=== PATIENT | male | born 1950 | race Caucasian/White ===

== ENCOUNTER 2021-03-18 02:53 | Emergency (ER) | payer MEDICARE, OTHER ==
[2021-03-18] MEDS ORDERED: Sodium Chloride 0.9% 1,000 ML IV ONE (03:05)
[2021-03-18] MEDS ORDERED: Ondansetron 4 MG/2 ML SDV IVPUSH ONE (03:05)
[2021-03-18] MEDS ORDERED: HYDROmorphone 1 MG/ML Syringe IVPUSH ONE ×3 (03:05→06:56)
--- NOTE | 2021-03-18 03:16 | EDM.PDOC ---
ED HPI GENERAL MEDICAL PROBLEM - General Chief Complaint: General Stated Complaint: abd pain Time Seen by Provider: 03/18/21 03:16 Source of Information: Reports: Patient History Limitations: Reports: No Limitations - History of Present Illness INITIAL COMMENTS - FREE TEXT/NARRATIVE: Cristobal, 70-year-old male, presents emergency department accompanied by his with severe abdominal discomfort predominantly to the right upper and lower abdominal region. States this is been ongoing for 2 weeks, awakening him at roughly 10 PM last night presenting here at 3 AM with constant severe pain rating a 10 on a scale of 10. Nausea and vomiting have occurred. Bowel movement he states "a couple squirts" last night. Has not been going much secondary of poor intake for the entire 2 weeks. Unsure of having fever chills but more predominant pain. Vaccinated x2 with Mango[employer] in August against COVID-19. Is scheduled to see Dr. Stoddard as his knee was postponed last year secondary of pandemic and has not had any lab work for over a year. Overall good general health with no major concerns. Onset: Unknown/Unsure Duration: Week(s):, Getting Worse Location: Reports: Abdomen Quality: Reports: Pressure, Sharp Severity: Severe Improves with: Reports: None Worsens with: Reports: Movement Context: Reports: Activity Associated Symptoms: Reports: Fever/Chills Abdomen Pain Score (Numeric/FACES): 10 - Related Data Allergies Allergy/AdvReac Type Severity Reaction Status Date / Time No Known Allergies Allergy Verified 03/18/21 03:58 Home Meds: Home Meds Acetaminophen 500 mg PO Q6H PRN 03/18/21 [History] Multivitamin [Multiple Vitamins] 1 tab PO DAILY 03/18/21 [History] cephALEXin [Cephalexin] 2,000 mg PO ASDIRECTED PRN 03/18/21 [History] Past Medical History HEENT History: Reports: Impaired Vision Cardiovascular History: Reports: High Cholesterol Respiratory History: Reports: Sleep Apnea Gastrointestinal History: Reports: None Genitourinary History: Reports: None Musculoskeletal History: Reports: Arthritis Neurological History: Reports: None Psychiatric History: Reports: None Endocrine/Metabolic History: Reports: Diabetes, Type II - Past Surgical History GI Surgical History: Reports: Appendectomy Musculoskeletal Surgical History: Reports: Knee Replacement Social & Family History - Family History Family Medical History: No Pertinent Family History ED ROS GENERAL - Review of Systems Review Of Systems: Comprehensive ROS is negative, except as noted in HPI. ED EXAM, GENERAL - Physical Exam Exam: See Below Free Text/Narrative:: Alert, oriented, in painful distress. HEENT negative the discharge deformity with pink moist mucous membranes. Thorax is clear with no wheezes no crackles. Cardiac is S1-S2 I do not appreciate murmur. Abdomen is soft, tenderness noted is the right side of the abdomen both upper and lower quadrants and mild periumbilical pain. No rebound tenderness noted. No flank pain. Bowel sounds are present somewhat sluggish. Lower extremities have +12 edema. Abdominal pain has been steady slowly worsening since 2200 hrs. last night. He is unable to get comfortable on the cart. Course - Vital Signs Last Recorded V/S: Last Vital Signs Temp 96.3 F L 03/18/21 02:56 Pulse 91 03/18/21 02:56 Resp 20 03/18/21 02:56 BP 175/101 H 03/18/21 02:56 Pulse Ox 96 03/18/21 02:56 - Orders/Labs/Meds Orders: Active Orders 24 hr Category Date Time Status Peripheral IV Care [RC] . DIRECTED Care 03/18/21 03:20 Active Chest 1V Frontal [CR] Stat Exams 03/18/21 03:19 Taken Sodium Chloride 0.9% [Saline Flush] Med 03/18/21 03:19 Active 10 ml FLUSH Q8HR PRN Peripheral IV Insertion Adult [OM.PC] Stat Oth 03/18/21 03:19 Ordered Medication Orders Sodium Chloride (Sodium Chloride 0.9% 10 Ml Syringe) 10 ml FLUSH Q8HR PRN PRN Reason: keep vein open Last Admin: 03/18/21 06:02 Dose: 10 ml Documented by: Admin: 03/18/21 03:22 Dose: 10 ml Documented by: BRIANDA Labs: Laboratory Tests 03/18/21 03/18/21 03/18/21 Range/Units 03:50 03:50 03:50 WBC 8.14 (5.00-10.00) 10^3/uL RBC 5.85 (4.50-6.00) 10^6/uL Hgb 16.6 (13.0-17.0) g/dL Hct 49.6 (40.0-52.0) % MCV 84.8 (82.0-92.0) fL MCH 28.4 (27.0-31.0) pg MCHC 33.5 (32.0-36.0) g/dL RDW 13.0 (11.5-14.5) % Plt Count 140 L (150-400) 10^3/uL MPV 9.8 (7.4-10.4) fL Immature Gran % (Auto) 0.4 (0.0-5.0) % Neut % (Auto) 64.6 (50.0-70.0) % Lymph % (Auto) 25.7 (20.0-40.0) % [place] % (Auto) 9.0 H (2.0-8.0) % Eos % (Auto) 0.1 L (1.0-3.0) % Baso % (Auto) 0.2 (0.0-1.0) % Neut # (Auto) 5.26 (2.50-7.00) 10^3/uL Lymph # (Auto) 2.09 (1.00-4.00) 10^3/uL [place] # (Auto) 0.73 (0.10-0.80) 10^3/uL Eos # (Auto) 0.01 L (0.10-0.30) 10^3/uL Baso # (Auto) 0.02 (0.00-0.10) 10^3/uL Immature Gran # (Auto) 0.03 (0.00-0.50) 10^3/uL Sodium 134 L (136-145) mmol/L Potassium 4.1 (3.5-5.1) mmol/L Chloride 101 (98-107) mmol/L Carbon Dioxide 20.2 L (21.0-32.0) mmol/L Anion Gap 16.9 H (5-15) mmol/L BUN 22 H (7-18) mg/dL Creatinine 0.69 (0.51-1.17) mg/dL Est Cr Clr Drug Dosing TNP Estimated GFR (MDRD) > 60 mL/min Glucose 173 H (70-140) mg/dL Lactic Acid 1.6 (0.4-2.0) mmol/L Calcium 8.4 L (8.7-10.3) mg/dL Total Bilirubin 1.0 (0.2-1.0) mg/dL AST 42 H (15-37) U/L ALT 61 (14-63) U/L Alkaline Phosphatase 86 (46-116) U/L Troponin I High Sens < 4.000 (0-76.000) pg/mL Total Protein 7.2 (6.4-8.2) g/dL Albumin 3.08 L (3.40-5.00) g/dL Amylase 35 (25-125) U/L Lipase 102 (73-393) U/L Specimen Type Urine Color (YELLOW) Urine Appearance (CLEAR) Urine pH (5.0-9.0) Ur Specific [place] (1.005-1.030) Urine Protein (NEGATIVE) mg/dL Urine Glucose (UA) (NEGATIVE) mg/dL Urine Ketones (NEGATIVE) mg/dL Urine Occult Blood (NEGATIVE) Urine Nitrite (NEGATIVE) Urine Bilirubin (NEGATIVE) Urine Urobilinogen (0.2-1.0) E.U./dL Ur Leukocyte Esterase (NEGATIVE) Urine RBC (0-5) /HPF Urine WBC (0-5) /HPF Ur Epithelial Cells /LPF Urine Bacteria (NONE TO FEW) /HPF Urine Mucus (NEGATIVE) /LPF 03/18/21 Range/Units 04:00 WBC (5.00-10.00) 10^3/uL RBC (4.50-6.00) 10^6/uL Hgb (13.0-17.0) g/dL Hct (40.0-52.0) % MCV (82.0-92.0) fL MCH (27.0-31.0) pg MCHC (32.0-36.0) g/dL RDW (11.5-14.5) % Plt Count (150-400) 10^3/uL MPV (7.4-10.4) fL Immature Gran % (Auto) (0.0-5.0) % Neut % (Auto) (50.0-70.0) % Lymph % (Auto) (20.0-40.0) % [place] % (Auto) (2.0-8.0) % Eos % (Auto) (1.0-3.0) % Baso % (Auto) (0.0-1.0) % Neut # (Auto) (2.50-7.00) 10^3/uL Lymph # (Auto) (1.00-4.00) 10^3/uL [place] # (Auto) (0.10-0.80) 10^3/uL Eos # (Auto) (0.10-0.30) 10^3/uL Baso # (Auto) (0.00-0.10) 10^3/uL Immature Gran # (Auto) (0.00-0.50) 10^3/uL Sodium (136-145) mmol/L Potassium (3.5-5.1) mmol/L Chloride (98-107) mmol/L Carbon Dioxide (21.0-32.0) mmol/L Anion Gap (5-15) mmol/L BUN (7-18) mg/dL Creatinine (0.51-1.17) mg/dL Est Cr Clr Drug Dosing Estimated GFR (MDRD) mL/min Glucose (70-140) mg/dL Lactic Acid (0.4-2.0) mmol/L Calcium (8.7-10.3) mg/dL Total Bilirubin (0.2-1.0) mg/dL AST (15-37) U/L ALT (14-63) U/L Alkaline Phosphatase (46-116) U/L Troponin I High Sens (0-76.000) pg/mL Total Protein (6.4-8.2) g/dL Albumin (3.40-5.00) g/dL Amylase (25-125) U/L Lipase (73-393) U/L Specimen Type Urincc Urine Color [place] H (YELLOW) Urine Appearance Clear (CLEAR) Urine pH 5.0 (5.0-9.0) Ur Specific [place] >= 1.030 (1.005-1.030) Urine Protein 100 H (NEGATIVE) mg/dL Urine Glucose (UA) Negative (NEGATIVE) mg/dL Urine Ketones 80 H (NEGATIVE) mg/dL Urine Occult Blood Trace-lysed H (NEGATIVE) Urine Nitrite Negative (NEGATIVE) Urine Bilirubin Small H (NEGATIVE) Urine Urobilinogen 1.0 (0.2-1.0) E.U./dL Ur Leukocyte Esterase Negative (NEGATIVE) Urine RBC 0-5 (0-5) /HPF Urine WBC 0-5 (0-5) /HPF Ur Epithelial Cells Rare /LPF Urine Bacteria Occasional (NONE TO FEW) /HPF Urine Mucus Moderate H (NEGATIVE) /LPF Meds: Medications Generic Name Dose Route Start Last Admin Trade Name Preston PRN Reason Stop Dose Admin Sodium Chloride 10 ml 03/18/21 03:19 03/18/21 06:02 Sodium Chloride 0.9% 10 Ml Syringe FLUSH 10 ml Q8HR PRN Administration keep vein open Discontinued Medications Generic Name Dose Route Start Last Admin Trade Name Preston PRN Reason Stop Dose Admin Hydromorphone HCl 1 mg 03/18/21 03:05 03/18/21 03:29 Hydromorphone 1 Mg/Ml Syringe IVPUSH 03/18/21 03:06 1 mg ONETIME ONE Administration Hydromorphone HCl 1 mg 03/18/21 05:51 03/18/21 05:57 Hydromorphone 1 Mg/Ml Syringe IVPUSH 03/18/21 05:52 1 mg ONETIME ONE Administration Sodium Chloride 1,000 mls @ 999 mls/hr 03/18/21 03:05 03/18/21 03:43 Normal Saline IV 03/18/21 04:05 999 mls/hr .BOLUS ONE Administration Ketorolac Tromethamine 30 mg 03/18/21 04:13 03/18/21 04:16 Ketorolac 30 Mg/Ml Sdv IVPUSH 03/18/21 04:14 30 mg ONETIME ONE Administration Ondansetron HCl 8 mg 03/18/21 03:05 03/18/21 03:33 Ondansetron 4 Mg/2 Ml Sdv IVPUSH 03/18/21 03:06 8 mg ONETIME ONE Administration - Re-Assessments/Exams Free Text/Narrative Re-Assessment/Exam: 03/18/21 04:18 As his pain is returning "7" I reassess and discuss with him the aspects as we are still waiting for creatinine and GFR to do CT abdomen pelvis with contrast. He now feels pain is increased again as he was somewhat comfortable after the IV Dilaudid. I tell him that there is mild hematuria which makes me question kidney stone although he does not have flank pain. Explained that with his loose stool I am more concerned of bowel issues to which he now says the pain has not been that bad for the past 2 weeks and the reason he has not had bowel movements this because he is not eating. She is abdominal pain has been minimal and was more anterior epigastric for the past 2 weeks changing its pattern and its severity with now stating that tonight is the only time it had been severe, but yet awakening him with a sharp onset at 10 PM and not arriving to the emergency department until 3 AM. Departure - Departure Time of Disposition: 06:09 Disposition: DC/Tfer to [facility] 02 Condition: Fair Clinical Impression: Hyperglycemia, Mesenteric vein thrombosis, Portal vein thrombosis Abdominal pain Qualifiers: Abdominal location: generalized Qualified Code(s): R10.84 - Generalized abdominal pain - Discharge Information *PRESCRIPTION DRUG MONITORING PROGRAM REVIEWED*: Not Applicable *COPY OF PRESCRIPTION DRUG MONITORING REPORT IN PATIENT ANDERS: Not Applicable Referrals: Mary Jo Alves CRA OFFICER [Primary Care Provider] - Forms: ED Department Discharge Additional Instructions: Contact with [place] 1 call at [phone] Davila [phone] excepting transfer to the emergency department for further work-up. Sepsis Event Note (ED) - Focused Exam Vital Signs: Vital Signs Temp Pulse Resp BP Pulse Ox 03/18/21 02:56 96.3 F L 91 20 175/101 H 96 ED Communication - ED Communication Date/Time Date: 03/18/21 Time Called: 05:55 - Discussed Case With (1) Discussed Case With (1): Admitting Provider Person/s Notified (1): Dee Davila ([place] [facility]) - Problem List & Annotations (1) Abdominal pain SNOMED Code(s): 72776846 Code(s): R10.9 - UNSPECIFIED ABDOMINAL PAIN Status: Acute Priority: High Qualifiers: Abdominal location: generalized Qualified Code(s): R10.84 - Generalized abdominal pain (2) Change in consistency of stool SNOMED Code(s): 909498610 Code(s): R19.5 - OTHER FECAL ABNORMALITIES Status: Acute Priority: High (3) Hyperglycemia SNOMED Code(s): 57429124 Code(s): R73.9 - HYPERGLYCEMIA, UNSPECIFIED Status: Acute Priority: High Annotation/Comment:: History of "Pre-diabetes" Likely type 2 with this elevation. (4) Hematuria SNOMED Code(s): 38528965 Code(s): R31.9 - HEMATURIA, UNSPECIFIED Status: Acute Priority: Medium Qualifiers: Hematuria type: unspecified type Qualified Code(s): R31.9 - Hematuria, unspecified (5) Mesenteric vein thrombosis Status: Acute (6) Portal vein thrombosis SNOMED Code(s): 33982041 Code(s): I81 - PORTAL VEIN THROMBOSIS Status: Acute - Problem List Review Problem List Initiated/Reviewed/Updated: Yes - My Orders Last 24 Hours: My Active Orders 03/18/21 03:19 Chest 1V Frontal [CR] Stat Sodium Chloride 0.9% [Saline Flush] 10 ml FLUSH Q8HR PRN Peripheral IV Insertion Adult [OM.PC] Stat 03/18/21 03:20 Peripheral IV Care [RC] . DIRECTED - Assessment/Plan Last 24 Hours: My Active Orders 03/18/21 03:19 Chest 1V Frontal [CR] Stat Sodium Chloride 0.9% [Saline Flush] 10 ml FLUSH Q8HR PRN Peripheral IV Insertion Adult [OM.PC] Stat 03/18/21 03:20 Peripheral IV Care [RC] . DIRECTED Plan: Contact with [place] 1 call at [phone] Davila [phone] excepting transfer to the emergency department for further work-up.
[2021-03-18] MEDS: Sodium Chloride 0.9% 10 ML Syringe FLUSH PRN ×2 (03:22→06:02)
[2021-03-18] MEDS ORDERED: Ketorolac 30 MG/ML SDV IVPUSH ONE (04:13)
[2021-03-18 04:19] LABS: ANION GAP 16.9 mmol/L (5-15); CHLORIDE,CL 101 mmol/L (98-107); SODIUM,NA 134 mmol/L (136-145)
[2021-03-18] MEDS: Iopamidol 755 Mg/ML 75 ML Bottle IVPUSH ONE ×2 (04:31→23:00)
[2021-03-18] MEDS ORDERED: HYDROmorphone 1 MG/ML Syringe ONE (06:54)
--- NOTE | 2021-03-18 08:55 | CR ---
[id number] RAD/RAD Chest Portable EXAM: PORTABLE CHEST RADIOGRAPH. INDICATION: ABDOMINAL PAIN COMPARISON: CORRELATION IS MADE WITH NOVEMBER 03, 2011 FINDINGS: Elevation of the right hemidiaphragm again is seen The lungs are clear The cardiac silhouette is stable IMPRESSION: NO ACUTE PROCESS. Vitaliy Guillory MD 03/18/21 08 Thank you for allowing us to participate in the care of your patient.
[2021-03-19] MEDS ORDERED: Sodium Chloride 0.9% 50 ML IV SCH (10:30)
[2021-03-19] MEDS: Iopamidol 755 Mg/ML 75 ML Bottle IVPUSH ONE (10:31)
== END 2021-03-18 07:03 ==
LOC: KA.ED 02:53
DX: K55.059 Acute (reversible) ischemia of intestine, part and extent unspecified (principal); I81 Portal vein thrombosis; E11.65 Type 2 diabetes mellitus with hyperglycemia
CPT/HCPCS: 36415; 71045; 80053; 81001; 82150; 83605; 83690; 84484; 85025; 96374; 96375; 96376; 99284; 99285-25; J1170; J1885; J2405; J7030; Q9967

== ENCOUNTER 2021-04-03 03:53 | Inpatient (IN) | payer MEDICARE, OTHER ==
[2021-04-03] MEDS ORDERED: Acetaminophen 500 MG Tab PO PRN (17:30)
[2021-04-03] MEDS ORDERED: Melatonin 3 MG Tab PO PRN (17:36)
[2021-04-03] MEDS ORDERED: Ondansetron 4 MG Tab.DIS PO PRN (17:36)
[2021-04-03] MEDS ORDERED: Piperacillin/Tazobactam/Dext 3.375 GM in Premix Bag 1 BAG IV SCH (20:00)
[2021-04-03] MEDS: Apixaban 5 MG Tab PO SCH (21:22)
[2021-04-03] MEDS: Sodium Chloride 1 GM Tab PO SCH (21:22)
[2021-04-03] MEDS: Sodium Chloride 0.9% 10 ML Syringe FLUSH PRN ×2 (21:30→22:24)
[2021-04-03] MEDS: Sodium Chloride 0.9% 100 ML IV SCH (21:30)
[2021-04-03] MEDS: Piperacillin/Tazobactam 4.5 GM in Sodium Chloride 0.9% 100 ML IV SCH (21:30)
[2021-04-03] MEDS ORDERED: Piperacillin/Tazobactam 4.5 GM Vial IV SCH (22:00)
[2021-04-04] MEDS: Sodium Chloride 0.9% 10 ML Syringe FLUSH PRN ×2 (05:14→06:08)
[2021-04-04] MEDS: Piperacillin/Tazobactam 4.5 GM in Sodium Chloride 0.9% 100 ML IV SCH ×3 (05:14→21:32)
[2021-04-04 07:46] LABS: ANION GAP 11.7 mmol/L (5-15); CHLORIDE,CL 106 mmol/L (98-107); SODIUM,NA 137 mmol/L (136-145)
[2021-04-04] MEDS: Apixaban 5 MG Tab PO SCH ×2 (08:51→21:32)
[2021-04-04] MEDS: Metoprolol Succinate 25 MG Tab.ER PO SCH (08:51)
[2021-04-04] MEDS: Sodium Chloride 1 GM Tab PO SCH ×3 (08:51→21:32)
--- NOTE | 2021-04-04 09:24 | PCM.HP.2 ---
H&P History of Present Illness - General Date of Service: 04/04/21 Admit Problem/Dx: Admission Diagnosis/Problem Admission Diagnosis/Problem Status post small bowel resection - Related Data Allergies/Adverse Reactions: Allergies Allergy/AdvReac Type Severity Reaction Status Date / Time No Known Allergies Allergy Verified 03/18/21 03:58 Home Medications: Home Meds Acetaminophen 1,000 mg PO Q6H PRN 03/18/21 [History] Apixaban [Eliquis] 5 mg PO BID 04/03/21 [History] Apixaban [Eliquis] 10 mg PO BID 04/03/21 [History] Benzocaine/Menthol [[facility] Sore Throat 15-3.6 mg Arturo] 1 each MM Q4HR PRN 04/03/21 [History] Melatonin 3 mg PO BEDTIME PRN 04/03/21 [History] Metoprolol Succinate [Toprol Xl] 25 mg PO DAILY 04/03/21 [History] Ondansetron [Zofran ODT] 4 mg PO Q4HR PRN 04/03/21 [History] Patient's Own Medication [Ptom] 1 tab PO DAILY 04/03/21 [History] Piperacillin/Tazobactam [Zosyn 4.5 GM] 4.5 gm IV Q8HR 04/03/21 [History] Sodium Chloride 1 gm PO TID 04/03/21 [History] Sodium Chloride 0.9 % (Flush) [Monoject 0.9% Sodium Chloride] 1 syringe DAILY 04/03/21 [History] cephALEXin [Cephalexin] 2,000 mg PO ASDIRECTED PRN 04/03/21 [History] Past Medical History HEENT History: Reports: Hard of Hearing, Impaired Vision Other HEENT History: wears bilateral hearing aids and glasses Cardiovascular History: Reports: High Cholesterol, Hypertension Respiratory History: Reports: Sleep Apnea Gastrointestinal History: Reports: Other (See Below) Other Gastrointestinal History: ischemic colitis Genitourinary History: Reports: None Musculoskeletal History: Reports: Arthritis Neurological History: Reports: None Psychiatric History: Reports: None Endocrine/Metabolic History: Reports: Obesity/BMI 30+, Vitamin D Deficiency Other Endocrine/Metabolic History: Pre-diabetic - Past Surgical History Head Surgeries/Procedures: Reports: None GI Surgical History: Reports: Appendectomy, Small Bowel, Other (See Below) Other GI Surgeries/Procedures: small bowel resection 42 cm necrotic bowel removed 03/22/21 & 03/24/21 Musculoskeletal Surgical History: Reports: Knee Replacement Social & Family History - Family History Family Medical History: No Pertinent Family History - Tobacco Use Tobacco Use Status *Q: Never Tobacco User Second Hand Smoke Exposure: Yes - Caffeine Use Caffeine Use: Reports: Coffee, Soda - Recreational Drug Use Recreational Drug Use: No H&P Review of Systems - Review of Systems: Review Of Systems: See Below General: Reports: Weakness, Fatigue, Decreased Appetite. Denies: Fever, Chills HEENT: Reports: No Symptoms. Denies: Headaches, Sinus Congestion Pulmonary: Reports: Wheezing. Denies: Shortness of Breath, Pleuritic Chest Pain, Cough (intermittent, mild) Cardiovascular: Reports: No Symptoms. Denies: Edema Gastrointestinal: Reports: Decreased Appetite, Flatus. Denies: Abdominal Pain, Constipation, Diarrhea, Nausea Genitourinary: Reports: No Symptoms Musculoskeletal: Reports: No Symptoms Skin: Reports: Other (Healing incision of abdomen ) Psychiatric: Reports: No Symptoms Neurological: Reports: No Symptoms Hematologic/Lymphatic: Reports: No Symptoms Immunologic: Reports: No Symptoms Exam - Exam Exam: See Below - Vital Signs Vital Signs: Last Vital Signs Temp 97.3 F 04/03/21 21:21 Pulse 56 L 04/04/21 08:51 Resp 20 04/03/21 21:21 BP 126/80 04/04/21 08:51 Pulse Ox 92 L 04/03/21 21:21 Weight: 265 lb 14.4 oz - Exam Quality Assessment: DVT Prophylaxis. No: Supplemental Oxygen, Urinary Catheter General: Alert, Oriented, Cooperative. No: Mild Distress HEENT: Conjunctiva Clear, Mucosa Moist & [place] Neck: Supple, Trachea Midline Lungs: Normal Respiratory Effort, Decreased Breath Sounds, Wheezing. No: Crackles, Rhonchi Cardiovascular: Regular Rate, Irregular Rhythm (slightly irregular on auscultation). No: Systolic Murmur GI/Abdominal Exam: Normal Bowel Sounds, Soft, Non-Tender, No Distention. No: Guarding (Male) Exam: Deferred Rectal (Males) Exam: Deferred Back Exam: Normal Inspection, Full Range of Motion Extremities: Normal Inspection, Normal Range of Motion, Non-Tender, No Pedal Edema, Normal Capillary Refill Peripheral Pulses: 2+: Dorsalis Pedis (L), Dorsalis Pedis (R) Skin: Warm, Dry, Incision (healing midline abdominal incision with intact juan francisco noted; GIOVANNY drain with straw colored fluid) Neurological: Cranial Nerves Intact Neuro Extensive - Mental Status: Alert, Oriented x3, Normal Mood/Affect Psychiatric: Alert, Normal Affect, Normal Mood - Patient Data Lab Results Last 24 hrs: Laboratory Results - last 24 hr 04/04/21 04/04/21 Range/Units 07:11 07:11 WBC 11.13 H (5.00-10.00) 10^3/uL RBC 4.07 L (4.50-6.00) 10^6/uL Hgb 11.5 L D (13.0-17.0) g/dL Hct 35.0 L (40.0-52.0) % MCV 86.0 (82.0-92.0) fL MCH 28.3 (27.0-31.0) pg MCHC 32.9 (32.0-36.0) g/dL RDW 14.5 (11.5-14.5) % Plt Count 207 (150-400) 10^3/uL MPV 10.1 (7.4-10.4) fL Immature Gran % (Auto) 1.1 (0.0-5.0) % Neut % (Auto) 49.4 L (50.0-70.0) % Lymph % (Auto) 42.0 H (20.0-40.0) % [place] % (Auto) 6.6 (2.0-8.0) % Eos % (Auto) 0.7 L (1.0-3.0) % Baso % (Auto) 0.2 (0.0-1.0) % Neut # (Auto) 5.49 (2.50-7.00) 10^3/uL Lymph # (Auto) 4.68 H (1.00-4.00) 10^3/uL [place] # (Auto) 0.74 (0.10-0.80) 10^3/uL Eos # (Auto) 0.08 L (0.10-0.30) 10^3/uL Baso # (Auto) 0.02 (0.00-0.10) 10^3/uL Immature Gran # (Auto) 0.12 (0.00-0.50) 10^3/uL Sodium 137 (136-145) mmol/L Potassium 4.1 (3.5-5.1) mmol/L Chloride 106 (98-107) mmol/L Carbon Dioxide 23.4 (21.0-32.0) mmol/L Anion Gap 11.7 (5-15) mmol/L BUN 16 (7-18) mg/dL Creatinine 0.71 (0.51-1.17) mg/dL Est Cr Clr Drug Dosing 106.06 mL/min Estimated GFR (MDRD) > 60 mL/min Glucose 92 (70-140) mg/dL Calcium 7.2 L (8.7-10.3) mg/dL Result Diagrams: 04/04/21 07:11 04/04/21 07:11 Sepsis Event Note - Evaluation Sepsis Screening Result: No Definite Risk - Focused Exam Vital Signs: Vital Signs Pulse BP 04/04/21 08:51 56 L 126/80 Problem List Initiated/Reviewed/Updated: Yes Orders Last 24hrs: Active Orders 24 hr Category Date Time Status Admission Status [Patient Status] [ADT] Routine ADT 04/03/21 15:29 Active Activity as Tolerated [RC] .Routine Care 04/03/21 16:39 Active Communication Order [RC] Care 04/03/21 16:40 Active Communication Order [RC] DAILY Care 04/03/21 16:41 Active Communication Order [RC] DAILY Care 04/03/21 16:42 Active Communication Order [RC] DAILY Care 04/03/21 16:43 Active Communication Order [RC] DAILY Care 04/03/21 16:43 Active Consult to Occupational Therapy [OT Evaluation and Cons 04/03/21 16:39 Active Treatment] [CONS] Routine PT Evaluation and Treatment [CONS] Routine Cons 04/03/21 16:38 Active Acetaminophen [Tylenol Extra Strength] Med 04/03/21 17:30 Active 1,000 mg PO Q6H PRN Apixaban [Eliquis] Med 04/03/21 21:00 Active 10 mg PO BID Apixaban [Eliquis] Med 04/08/21 09:00 Active 5 mg PO BID Melatonin Med 04/03/21 17:36 Active 3 mg PO BEDTIME PRN Metoprolol Succinate [Toprol XL] Med 04/04/21 09:00 Active 25 mg PO DAILY Ondansetron [Zofran ODT] Med 04/03/21 17:36 Active 4 mg PO Q4HR PRN Piperacillin/Tazobactam [Zosyn] 4.5 gm Med 04/03/21 22:00 Active Sodium Chloride 0.9% [Normal Saline] 100 ml IV Q8HR Sodium Chloride Med 04/03/21 21:00 Active 1 gm PO TID Sodium Chloride 0.9% [Normal Saline] 100 ml Med 04/03/21 18:45 Active IV ASDIRECTED Sodium Chloride 0.9% [Saline Flush] Med 04/03/21 21:37 Active 10 ml FLUSH ASDIRECTED PRN Code Status [Resuscitation Status] Routine Resus Stat 04/03/21 19:46 Ordered Medication Orders Acetaminophen (Acetaminophen 500 Mg Tab) 1,000 mg PO Q6H PRN PRN Reason: Pain Apixaban (Apixaban 5 Mg Tab) 10 mg PO BID [facility] Stop: 04/07/21 21:01 Last Admin: 04/04/21 08:51 Dose: 10 mg Documented by: Admin: 04/03/21 21:22 Dose: 10 mg Documented by: PONCHO Apixaban (Apixaban 5 Mg Tab) 5 mg PO BID [facility] Sodium Chloride (Normal Saline) 100 mls @ 250 mls/hr IV ASDIRECTED [facility] Last Admin: 04/03/21 21:30 Dose: 250 mls/hr Documented by: PONCHO Piperacillin Sod/Tazobactam (Sod 4.5 gm/ Sodium Chloride) 100 mls @ 200 mls/hr IV Q8HR [facility] Stop: 04/13/21 22:01 Last Admin: 04/04/21 05:14 Dose: 200 mls/hr Documented by: Admin: 04/03/21 21:30 Dose: 200 mls/hr Documented by: PONCHO Melatonin (Melatonin 3 Mg Tab) 3 mg PO BEDTIME PRN PRN Reason: Insomnia Metoprolol Succinate (Metoprolol Succinate 25 Mg Tab.Er) 25 mg PO DAILY [facility] Last Admin: 04/04/21 08:51 Dose: 25 mg Documented by: PALMER Ondansetron HCl (Ondansetron 4 Mg Tab.Dis) 4 mg PO Q4HR PRN PRN Reason: Nausea Sodium Chloride (Sodium Chloride 1 Gm Tab) 1 gm PO TID [facility] Last Admin: 04/04/21 08:51 Dose: 1 gm Documented by: Admin: 04/03/21 21:22 Dose: 1 gm Documented by: PONCHO Sodium Chloride (Sodium Chloride 0.9% 10 Ml Syringe) 10 ml FLUSH ASDIRECTED PRN PRN Reason: IV Use Last Admin: 04/04/21 06:08 Dose: 10 ml Documented by: Admin: 04/04/21 05:14 Dose: 10 ml Documented by: Admin: 04/03/21 22:24 Dose: 10 ml Documented by: Admin: 04/03/21 21:30 Dose: 10 ml Documented by: PONCHO Assessment/Plan Comment:: HPI summary: Cristobal is a 70-year-old male patient admitted from [facility] in [place] for swing bed after a rather complex acute hospital course. 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 Was being monitored and apparently had some improvement and then worsened and eventually required surgery with 45 cm of bowel removed. He subsequently required a few additional surgeries. He was then found to have some abscesses likely due to infection from bacterial translocation from the necrotic bowel. He had a GIOVANNY drain was placed by IR and patient has been receiving IV Zosyn to be continued on swing bed through 04/13. During his acute hospital stay, he was found to have decreased EF of 35% after the initial echo showed 60% on admission. Cardiac PET scan was essentially negative. Was seen by cardiology and they felt that this was likely due to nonischemic cardiomyopathy from the stress of this illness, etc. They wanted him on goal-directed therapy and follow-up in the clinic. Patient transferred to [facility] for inpatient rehab with nursing, PT and OT services. 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 On salt tablets during acute hospitalization. Swing bed Hospital Course: 04/04/21: Patient reports feeling somewhat weak following acute hospital stay. He has had a decreased appetite; denies N/V/D, BM this morning, + flatus. Denies fever, chills, headache, sore throat. Reports an occasional wheeze, has been using IS. Incision healing well to abdomen, juan francisco intact. GIOVANNY drain with straw colored fluid. Vitals stable. 97.3, HR 79, BP 116/60, RR 20, 92% on room air. Labs overall unremarkable: WBC 11.13, Hgb 11.5, Plt 207; Na 137, K 4.1, BUN 16, Creatinine 0.71, GFR > 60. PT and OT services ordered while on swing bed for rehabilitation. 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 - Continue eliquis at 10mg PO BID, then decrease to 5mg PO BID - Recommend hematology follow-up due to uncommon presentation # Recent hx of intra-abdominal abscesses; bowel resection for ischemic bowel - Continue GIOVANNY drain - Continue IV Zosyn Q8H through 04/13 Chronic, stable conditions: # Mixed hyperlipidemia # Prediabetes # Vitamin D deficiency # Fatigue # Snoring # Hearing impairment # R DJD # Obesity Hospitalization details: # FEN: Oral fluids with ensure supplementation, electrolytes stable, ADA diet # PPX: Continue eliquis # Code status: FULL CODE # Emergency contact: Laura [phone] # Disposition: Patient admitted to swing bed for [facility], PT and OT services for inpatient rehabilitation following rather complex acute hospital course.
[2021-04-04] MEDS ORDERED: Polyethylene Glycol 3350 Powder 17 GM Packet PO PRN (09:31)
[2021-04-04] MEDS: Sodium Chloride 0.9% 100 ML IV SCH (21:30)
[2021-04-05] MEDS: Piperacillin/Tazobactam 4.5 GM in Sodium Chloride 0.9% 100 ML IV SCH ×3 (05:53→21:26)
--- NOTE | 2021-04-05 08:17 | PT ---
PATIENT NAME: NARDA GRIFFIN MEDICAL RECORD NUMBER: : [id number] DATE: 04/04/2021 REFERRING PHYSICIAN: Sweta Daniel NP ONSET DATE: 03/24/2021. DIAGNOSIS: Deconditioning, bilateral lower extremity weakness, status post bowel obstruction with resection. SUBJECTIVE: The patient was taken by ambulance from our Emergency Department to [place] for a small-bowel obstruction. It was determined that the patient's shortness of breath was caused from this bowel obstruction, which ended up initially being a blood clot. The patient required 2 procedures to remove a portion of his small bowels with the most recent procedure being on 03/29/2021. The patient has had very little activity since the time of admission. He is able to transfer out of his bed to his chair with the assistance of nursing. He has also had regular bowel movements and is able to get to and from his bed to the bathroom with the assistance of nursing and a front wheel walker. The patient denies pain at this time. Despite the patient being very fatigued and weak, he tells me he is motivated to improve to prior level of function in terms of strength and activity. The patient was a very active individual before this admission. OBJECTIVE: Treatment time 1315, ending at 1400. TREATMENT: Consisted of physical therapy initial evaluation, low complex, and therapeutic exercises consisting of the patient ambulating inside a front- wheeled walker with contact guard assist x300 feet, which took 11 minutes. OBSERVATION: The patient is supine in bed upon my arrival. He had recently awoken from a nap. The patient's incision site through the abdominal wall appears to be healing normally and free of infection with juan francisco still intact. PAIN: The patient denies pain. PALPATION: Negative. RANGE OF MOTION: Active range of motion is within normal limits in all extremities bilaterally. Passive range of motion is grossly normal. Manual muscle test is grade 4/5 in all planes of bilateral upper and lower extremities. SPECIAL TESTS: Tinetti balance assessment score of 28/28. NEUROLOGIC FINDINGS: Grossly normal. ASSESSMENT: Impression: The patient will benefit from increasing the patient's activity level to improve strengthening conditioning in an effort to get him back to prior level of function, so he can return home. The patient does have two steps to accommodate to get in and out of the home with all his other needs being on one level. The patient shows a lot of motivation to improve. GOALS: Please refer to plan of care. PLAN: The patient will be seen in swing bed status 5 days per week for implementation and progression of therapeutic exercises to improve physical condition to prior level of function with normal strength and conditioning.
[2021-04-05] MEDS: Metoprolol Succinate 25 MG Tab.ER PO SCH (08:22)
[2021-04-05] MEDS: Sodium Chloride 1 GM Tab PO SCH ×3 (08:23→21:26)
[2021-04-05] MEDS: Apixaban 5 MG Tab PO SCH ×2 (08:23→21:26)
[2021-04-05] MEDS: Sodium Chloride 0.9% 100 ML IV SCH ×2 (14:28→21:41)
[2021-04-05] MEDS: Sodium Chloride 0.9% 10 ML Syringe FLUSH PRN (14:29)
[2021-04-06] MEDS: Piperacillin/Tazobactam 4.5 GM in Sodium Chloride 0.9% 100 ML IV SCH ×3 (05:33→17:50)
[2021-04-06] MEDS: Sodium Chloride 1 GM Tab PO SCH ×3 (08:33→20:25)
[2021-04-06] MEDS: Apixaban 5 MG Tab PO SCH ×2 (08:33→20:25)
[2021-04-06] MEDS: Metoprolol Succinate 25 MG Tab.ER PO SCH (08:44)
[2021-04-07] MEDS: Piperacillin/Tazobactam 4.5 GM in Sodium Chloride 0.9% 100 ML IV SCH ×3 (00:14→16:08)
[2021-04-07] MEDS: Apixaban 5 MG Tab PO SCH ×2 (08:32→20:06)
[2021-04-07] MEDS: Sodium Chloride 1 GM Tab PO SCH ×3 (08:32→20:05)
[2021-04-07] MEDS: Metoprolol Succinate 25 MG Tab.ER PO SCH (08:32)
[2021-04-07] MEDS: Sodium Chloride 0.9% 100 ML IV SCH (16:08)
[2021-04-08] MEDS: Piperacillin/Tazobactam 4.5 GM in Sodium Chloride 0.9% 100 ML IV SCH ×3 (00:13→16:15)
[2021-04-08] MEDS: Metoprolol Succinate 25 MG Tab.ER PO SCH (08:47)
[2021-04-08] MEDS: Sodium Chloride 1 GM Tab PO SCH ×3 (08:48→20:16)
[2021-04-08] MEDS: Apixaban 5 MG Tab PO SCH ×2 (08:48→20:16)
--- NOTE | 2021-04-08 12:38 | PCM.PN ---
- General Info Date of Service: 04/08/21 Functional Status: Reports: Pain Controlled, Tolerating Diet, Ambulating, Urinating, Incentive Spirometry (1500ml). Denies: New Symptoms - Review of Systems General: Reports: Weakness (improving with PT) HEENT: Reports: No Symptoms Pulmonary: Reports: Cough (occasional). Denies: Shortness of Breath, Wheezing Cardiovascular: Reports: Edema Gastrointestinal: Reports: Decreased Appetite, Flatus. Denies: Abdominal Pain, Constipation, Diarrhea, Nausea, Vomiting Genitourinary: Reports: No Symptoms Musculoskeletal: Reports: No Symptoms Skin: Reports: No Symptoms Neurological: Reports: No Symptoms Psychiatric: Reports: No Symptoms - Patient Data Vitals - Most Recent: Last Vital Signs Temp 97.5 F 04/08/21 08:46 Pulse 109 H 04/08/21 08:47 Resp 20 04/08/21 08:46 BP 117/79 04/08/21 08:47 Pulse Ox 94 L 04/08/21 08:46 Weight - Most Recent: 252 lb I&O - Last 24 Hours: Intake & Output 04/07/21 04/08/21 04/08/21 22:59 06:59 14:59 Intake Total 300 170 Output Total 200 1100 Balance 100 -930 Med Orders - Current: Current Medications Acetaminophen (Acetaminophen 500 Mg Tab) 1,000 mg PO Q6H PRN PRN Reason: Pain Apixaban (Apixaban 5 Mg Tab) 5 mg PO BID [facility] Last Admin: 04/08/21 08:48 Dose: 5 mg Documented by: Sodium Chloride (Normal Saline) 100 mls @ 250 mls/hr IV ASDIRECTED [facility] Last Admin: 04/07/21 16:08 Dose: 250 mls/hr Documented by: Piperacillin Sod/Tazobactam (Sod 4.5 gm/ Sodium Chloride) 100 mls @ 200 mls/hr IV Q8H [facility] Last Admin: 04/08/21 08:44 Dose: 200 mls/hr Documented by: Melatonin (Melatonin 3 Mg Tab) 3 mg PO BEDTIME PRN PRN Reason: Insomnia Metoprolol Succinate (Metoprolol Succinate 25 Mg Tab.Er) 25 mg PO DAILY [facility] Last Admin: 04/08/21 08:47 Dose: 25 mg Documented by: Ondansetron HCl (Ondansetron 4 Mg Tab.Dis) 4 mg PO Q4HR PRN PRN Reason: Nausea Polyethylene Glycol (Polyethylene Glycol 3350 Powder 17 Gm Packet) 17 gm PO DAILY PRN PRN Reason: Constipation Senna/Docusate Sodium (Docusate Sodium/Sennosides 50-8.6 Mg Tab) 1 tab PO BID PRN PRN Reason: Constipation Sodium Chloride (Sodium Chloride 1 Gm Tab) 1 gm PO TID [facility] Last Admin: 04/08/21 08:48 Dose: 1 gm Documented by: Sodium Chloride (Sodium Chloride 0.9% 10 Ml Syringe) 10 ml FLUSH ASDIRECTED PRN PRN Reason: IV Use Last Admin: 04/05/21 14:29 Dose: 10 ml Documented by: Discontinued Medications Apixaban (Apixaban 5 Mg Tab) 10 mg PO BID [facility] Stop: 04/07/21 21:01 Last Admin: 04/07/21 20:06 Dose: 10 mg Documented by: Piperacillin/Tazobactam/ (Dextrose 3.375 gm/ Premix) 50 mls @ 100 mls/hr IV Q6H [facility] Stop: 04/13/21 20:01 Piperacillin Sod/Tazobactam (Sod 4.5 gm/ Sodium Chloride) 100 mls @ 200 mls/hr IV Q8HR [facility] Stop: 04/13/21 22:01 Last Admin: 04/06/21 17:50 Dose: Not Given Documented by: Piperacillin Sod/Tazobactam Sod (Piperacillin/Tazobactam 4.5 Gm Vial) 4.5 gm IV Q8HR JENN - Exam Quality Assessment: DVT Prophylaxis. No: Supplemental Oxygen, Urine Catheter General: Alert, Oriented, Cooperative, No Acute Distress HEENT: Pupils Equal, Pupils Reactive, Mucous Membr. Moist/[place] Neck: Supple, Trachea Midline Lungs: Clear to Auscultation, Normal Respiratory Effort. No: Crackles, Rhonchi, Wheezing Cardiovascular: Regular Rhythm, Tachycardia. No: No Murmurs GI/Abdominal Exam: Normal Bowel Sounds, Soft, Non-Tender, No Distention (Male) Exam: Deferred Extremities: Normal Inspection, Normal Range of Motion, Non-Tender, Normal Capillary Refill, Pedal Edema (+1 BLE) Peripheral Pulses: 2+: Dorsalis Pedis (L), Dorsalis Pedis (R) Skin: Warm, Dry, Intact Wound/Incisions: Healing Well, Other (will remove every other staple today; 14 days post-op today - will plan to remove the remaining juan francisco next 1-2 days) Neurological: No New Focal Deficit Psy/Mental Status: Alert, Normal Affect, Normal Mood - Patient Data Result Diagrams: 04/04/21 07:11 04/04/21 07:11 Sepsis Event Note - Evaluation Sepsis Screening Result: No Definite Risk - Focused Exam Vital Signs: Vital Signs Temp Pulse Pulse Resp BP BP Pulse Ox 04/08/21 08:47 109 H 117/79 04/08/21 08:46 97.5 F 109 H 20 117/79 94 L - Problem List Review Problem List Initiated/Reviewed/Updated: Yes - My Orders Last 24 Hours: My Active Orders 04/09/21 05:11 CBC WITH AUTO DIFF [HEME] AM CMP [COMPREHENSIVE METABOLIC PN,CMP] [CHEM] AM 04/17/21 09:00 Abdomen Pelvis w Cont [CT] Routine - Plan Plan:: HPI summary: Cristobal is a 70-year-old male patient admitted from [facility] in [place] for swing bed after a rather complex acute hospital course. 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 Was being monitored and apparently had some improvement and then worsened and eventually required surgery with 45 cm of bowel removed. He subsequently required a few additional surgeries. He was then found to have some abscesses likely due to infection from bacterial translocation from the necrotic bowel. He had a GIOVANNY drain was placed by IR and patient has been receiving IV Zosyn to be continued on swing bed through 04/13. During his acute hospital stay, he was found to h ave decreased EF of 35% after the initial echo showed 60% on admission. Cardiac PET scan was essentially negative. Was seen by cardiology and they felt that this was likely due to nonischemic cardiomyopathy from the stress of this illness, etc. They wanted him on goal-directed therapy and follow-up in the clinic. Patient transferred to [facility] for inpatient rehab with nursing, PT and OT services. 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 On salt tablets during acute hospitalization. Swing bed Hospital Course: 04/04/21: Patient reports feeling somewhat weak following acute hospital stay. He has had a decreased appetite; denies N/V/D, BM this morning, + flatus. Denies fever, chills, headache, sore throat. Reports an occasional wheeze, has been using IS. Incision healing well to abdomen, juan francisco intact. GIOVANNY drain with straw colored fluid. Vitals stable. 97.3, HR 79, BP 116/60, RR 20, 92% on ro om air. Labs overall unremarkable: WBC 11.13, Hgb 11.5, Plt 207; Na 137, K 4.1, BUN 16, Creatinine 0.71, GFR > 60. PT and OT services ordered while on swing bed for rehabilitation. 04/08/21: Patient feeling stronger by the day. He is able to walk further with PT. IS up to 1500ml. Reports he continues have an occasional cough and mild edema. Bowels have been regular, states he has been "pooping like a baby." Remains afebrile, mildly tachycardic, normotensive. Denies pain, fever, chills. Repeat CT scan ordered for Apr 17 for ongoing monitoring of abdominal abscess. IV antibiotics to continue until abscess resolved per [facility] discharge documentation. Patient had follow-up appointment with IR on Friday, 04/06; GIOVANNY drain was left in place for one more week. Patient to follow up with IR on 04/13 for consideration of drain removal. No drainage in GIOVANNY during exam today. Will repeat labs tomorrow morning: CBC, CMP. 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 - Continue IV Zosyn Q8H through 04/13 at least; DC instructions indicate to continue IV antibiotics until resolution of abdominal abscess is confirmed on re peat CT. Repeat CT ordered for 04/17 per discharge documents from [facility]. Chronic, stable conditions: # Mixed hyperlipidemia - last lipid panel 09/22/18 per [facility] - total cholesterol 200, LDL 125. Will obtain a lipid panel 04/09/21. # Prediabetes - A1C 5.8% on 03/18/21 at [facility] - plan to repeat Hgb A1C in June for monitoring. # Vitamin D deficiency # Fatigue # Snoring # Hearing impairment # R DJD # Obesity Hospitalization details: # FEN: Oral fluids with ensure supplementation, electrolytes stable, ADA diet # PPX: Continue eliquis # Code status: FULL CODE # Emergency contact: , Laura [phone] # Disposition: Continue swing bed status for ongoing PT. OT indicated that their services were not required by patient and was thus discontinued.
[2021-04-08] MEDS: Sodium Chloride 0.9% 100 ML IV SCH (16:15)
[2021-04-09] MEDS: Piperacillin/Tazobactam 4.5 GM in Sodium Chloride 0.9% 100 ML IV SCH ×3 (00:02→16:26)
[2021-04-09] MEDS: Metoprolol Succinate 25 MG Tab.ER PO SCH (08:28)
[2021-04-09] MEDS: Apixaban 5 MG Tab PO SCH ×2 (08:28→20:04)
[2021-04-09] MEDS: Sodium Chloride 1 GM Tab PO SCH ×3 (08:28→20:04)
[2021-04-09 09:09] LABS: ANION GAP 9.8 mmol/L (5-15); CHLORIDE,CL 109 mmol/L (98-107); SODIUM,NA 138 mmol/L (136-145)
[2021-04-09] MEDS: Sodium Chloride 0.9% 100 ML IV SCH (09:34)
[2021-04-10] MEDS: Piperacillin/Tazobactam 4.5 GM in Sodium Chloride 0.9% 100 ML IV SCH ×3 (00:05→16:39)
[2021-04-10] MEDS: Sodium Chloride 1 GM Tab PO SCH ×4 (09:00→20:16)
[2021-04-10] MEDS: Apixaban 5 MG Tab PO SCH ×3 (09:00→20:16)
[2021-04-10] MEDS: Metoprolol Succinate 25 MG Tab.ER PO SCH (09:00)
--- NOTE | 2021-04-10 10:41 | PCM.SN.2 ---
- Free Text/Narrative Note: Midline abdominal incision healing well. Patient tolerated the removal of 1/2 the juan francisco on Friday well. Will plan to have nursing remove the remaining juan francisco today. Patient scheduled to have follow-up IR visit in [place] on Friday04/13/21 for consideration of GIOVANNY drain removal. Very scant amount of fluid noted in GIOVANNY today. Of note, lipid panel improved from prior results, no indication for a statin at this time. Time Documentation
[2021-04-11] MEDS: Sodium Chloride 1 GM Tab PO SCH ×3 (08:24→20:45)
[2021-04-11] MEDS: Apixaban 5 MG Tab PO SCH ×2 (08:24→20:45)
[2021-04-11] MEDS: Metoprolol Succinate 25 MG Tab.ER PO SCH (08:24)
[2021-04-11] MEDS: Piperacillin/Tazobactam 4.5 GM in Sodium Chloride 0.9% 100 ML IV SCH ×4 (08:25→16:25)
[2021-04-11] MEDS: Sodium Chloride 0.9% 100 ML IV SCH (16:31)
[2021-04-12] MEDS: Piperacillin/Tazobactam 4.5 GM in Sodium Chloride 0.9% 100 ML IV SCH ×4 (01:26→22:12)
[2021-04-12] MEDS: Sodium Chloride 1 GM Tab PO SCH ×3 (08:50→21:56)
[2021-04-12] MEDS: Apixaban 5 MG Tab PO SCH ×2 (08:50→21:56)
[2021-04-12] MEDS: Metoprolol Succinate 25 MG Tab.ER PO SCH (08:51)
[2021-04-12] MEDS: Sodium Chloride 0.9% 100 ML IV SCH (16:37)
[2021-04-13] MEDS: Piperacillin/Tazobactam 4.5 GM in Sodium Chloride 0.9% 100 ML IV SCH ×5 (05:30→16:19)
[2021-04-13] MEDS: Apixaban 5 MG Tab PO SCH ×3 (06:17→20:53)
[2021-04-13] MEDS: Sodium Chloride 1 GM Tab PO SCH ×4 (06:18→20:54)
[2021-04-13] MEDS: Metoprolol Succinate 25 MG Tab.ER PO SCH ×2 (06:19→08:38)
[2021-04-13] MEDS: Sodium Chloride 0.9% 100 ML IV SCH (16:19)
[2021-04-13] MEDS: Sodium Chloride 0.9% 10 ML Syringe FLUSH PRN (16:19)
[2021-04-14] MEDS: Sodium Chloride 0.9% 10 ML Syringe FLUSH PRN ×2 (09:21→16:13)
[2021-04-14] MEDS: Apixaban 5 MG Tab PO SCH ×2 (09:21→20:55)
[2021-04-14] MEDS: Piperacillin/Tazobactam 4.5 GM in Sodium Chloride 0.9% 100 ML IV SCH ×4 (09:21→16:34)
[2021-04-14] MEDS: Metoprolol Succinate 25 MG Tab.ER PO SCH (09:22)
[2021-04-14] MEDS: Sodium Chloride 1 GM Tab PO SCH (09:24)
[2021-04-14] MEDS: Sodium Chloride 0.9% 100 ML IV SCH (16:17)
[2021-04-14] MEDS ORDERED: Sodium Chloride 1 GM Tab PO SCH (21:00)
[2021-04-15] MEDS: Piperacillin/Tazobactam 4.5 GM in Sodium Chloride 0.9% 100 ML IV SCH ×3 (00:29→16:43)
[2021-04-15] MEDS: Metoprolol Succinate 25 MG Tab.ER PO SCH (08:33)
[2021-04-15] MEDS: Apixaban 5 MG Tab PO SCH ×2 (08:34→20:21)
[2021-04-15] MEDS: Sodium Chloride 0.9% 10 ML Syringe FLUSH PRN ×2 (08:34→16:43)
[2021-04-15] MEDS: Sodium Chloride 0.9% 100 ML IV SCH (16:43)
[2021-04-16] MEDS: Piperacillin/Tazobactam 4.5 GM in Sodium Chloride 0.9% 100 ML IV SCH ×3 (00:42→16:28)
[2021-04-16 07:46] LABS: ANION GAP 13.6 mmol/L (5-15); CHLORIDE,CL 109 mmol/L (98-107); SODIUM,NA 142 mmol/L (136-145)
[2021-04-16] MEDS: Apixaban 5 MG Tab PO SCH ×2 (10:04→20:35)
[2021-04-16] MEDS: Metoprolol Succinate 25 MG Tab.ER PO SCH (10:04)
[2021-04-16] MEDS ORDERED: Iopamidol 755 Mg/ML 75 ML Bottle IVPUSH ONE ×2 (10:06→10:45)
[2021-04-16] MEDS ORDERED: Sodium Chloride 0.9% 50 ML IV SCH (10:15)
--- NOTE | 2021-04-16 10:35 | CT ---
[id number] CT/CT Abdomen Pelvis W IV EXAM: CT Abdomen Pelvis W IV CLINICAL DATA: ON[facility]IN[facility]UD[facility]: 03/18/2021. FINDINGS: Dependent atelectasis at the lung bases bilaterally. Post surgical changes following partial small bowel resection. There is a fluid collection within the midabdomen measuring 5.5 x 3.9 x 4.0 cm (series 2 image 96). There is no oral contrast within the collection. A few prominent loops of small bowel without evidence of obstruction. Trace free fluid within the abdomen and pelvis. Colonic diverticulosis without evidence of acute diverticulitis. Bilateral renal cortical cysts. Largest cyst is on the right measuring 9.7 cm. The gallbladder, liver, pancreas and adrenal glands are unremarkable. Hypodense lesion within the spleen may represent a hemangioma. No pneumoperitoneum. Scattered changes of spondylosis the spine. No fracture or osseous lesion. IMPRESSION: 1. Postsurgical changes with a fluid collection within the mid abdomen consistent with an abscess. This measures up to 5.5 cm. No contrast within the collections to suggest active leaking. Given the location, this would be difficult to access from a image guided percutaneous approach. Isai Caro DO 04/16/21 1034 Thank you for allowing us to participate in the care of your patient.
[2021-04-17] MEDS: Piperacillin/Tazobactam 4.5 GM in Sodium Chloride 0.9% 100 ML IV SCH ×2 (00:28→09:32)
[2021-04-17] MEDS: Sodium Chloride 0.9% 100 ML IV SCH (00:29)
[2021-04-17] MEDS: Apixaban 5 MG Tab PO SCH (09:31)
[2021-04-17] MEDS: Metoprolol Succinate 25 MG Tab.ER PO SCH (09:31)
--- NOTE | 2021-04-17 10:51 | PCM.DCSUM1 ---
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 - DC PICC line today prior to discharge per [place] surgery team - Per surgery, de-escalate therapy to Augmentin 875/125mg PO Q8H for 14 days - Follow-up with [place] surgery department on 05/02/21 at 11:[address] Discharge diagnoses: # Heart strain r/t non-ischemic cardiomyopathy - EF decreased to 35% on repeat echo during acute hospitalization in [place], recommend repeating echo in June, for ongoing monitoring # Mixed hyperlipidemia - last lipid panel 09/22/18 per [place] Chart - total cholesterol 200, LDL 125. Lipid panel repeated, LDL 62. # Prediabetes - A1C 5.8% on 03/18/21 at [facility] - plan to repeat Hgb A1C in June, for monitoring. # Vitamin D deficiency # Fatigue # Snoring # Hearing impairment # R DJD # Obesity HPI summary: Cristobal is a 70-year-old male patient admitted from [facility] in [place] for swing bed after a rather complex acute hospital course. Patient was initially transferred to [facility] on March 18 after being found to have superior mesenteric vein thrombosis and left portal vein thrombosis. Was being monitored and apparently had some improvement and then worsened and eventually required surgery with 45 cm of bowel removed. He subsequently required a few additional surgeries. He was then found to have some abscesses likely due to infection from bacterial translocation from the necrotic bowel. He had a GIOVANNY drain was placed by IR and patient has been receiving IV Zosyn to be continued on swing bed through 04/13. During his acute hospital stay, he was found to have decreased EF of 35% after the initial echo showed 60% on admission. Cardiac PET scan was essentially negative. Was seen by cardiology and they felt that this was likely due to nonischemic cardiomyopathy from the stress of this illness, etc. They wanted him on goal-directed therapy and follow-up in the clinic. Patient transferred to [facility] for inpatient rehab with nursing, PT and OT services. 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 On salt tablets during acute hospitalization. Swing bed Hospital Course: 04/04/21: Patient reports feeling somewhat weak following acute hospital stay. He has had a decreased appetite; denies N/V/D, BM this morning, + flatus. Denies fever, chills, headache, sore throat. Reports an occasional wheeze, has been using IS. Incision healing well to abdomen, juan francisco intact. GIOVANNY drain with straw colored fluid. Vitals stable. 97.3, HR 79, BP 116/60, RR 20, 92% on room air. Labs overall unremarkable: WBC 11.13, Hgb 11.5, Plt 207; Na 137, K 4.1, BUN 16, Creatinine 0.71, GFR > 60. PT and OT services ordered while on swing bed for rehabilitation. 04/08/21: Patient feeling stronger by the day. He is able to walk further with PT. IS up to 1500ml. Reports he continues have an occasional cough and mild edema. Bowels have been regular, states he has been "pooping like a baby." Remains afebrile, mildly tachycardic, normotensive. Denies pain, fever, chills. Repeat CT scan ordered for Apr 17 for ongoing monitoring of abdominal abscess. IV antibiotics to continue until abscess resolved per [facility] discharge documentation. Patient had follow-up appointment with IR on Friday, 04/06; GIOVANNY drain was left in place for one more week. Patient to follow up with IR on 04/13 for consideration of drain removal. No drainage in GIOVANNY during exam today. Will repeat labs tomorrow morning: CBC, CMP. 04/17/21: Patient feeling well, appetite improving. Vitals stable. Denies pain. Patient reports he feels better than he has in the past month and is ready to discharge home. Abdominal incision well healed. Lung sounds clear. Heart rate slightly elevated, patient reports he has had a chronically elevated heart rate "since 5th grade." Bowel sounds present, abdomen soft, NT. No drainage to GIOVANNY dressing. Mild peripheral edema, +1 to LLE, nonpitting to RLE. IS to 2000ml. Per [facility] surgical team may DC IV zosyn and DC PICC line; change abx to augmentin Q8H for the next 14 days until follow-up scheduled in [place] with surgery team and repeat CT at that time. Planning for discharge this afternoon. Discharge and follow-up recommendations: - Discharge to home per self care. Continue daily dressing changes of drain site until 04/20. - New medications at discharge: Eliquis 5mg PO BID, Augmentin 875/125mg Q8H x 14 days for abdominal abscess - Follow-up with Sweta Daniel APRN, REUBEN on 04/24 at 1:00 at [facility]. - Follow-up with [facility] team at [address] on 05/02 at 11:45. NPO after 7:30am to prepare for repeat abdominal CT - Discharge Data Discharge Date: 04/17/21 Discharge Disposition: Home, Self-Care 01 Condition: Good - Referral to Home Health Primary Care Physician: Mary Jo Alves NP - Patient Summary/Data Consults: Consultations 04/03/21 16:38 PT Evaluation and Treatment [CONS] Routine 04/03/21 16:39 Consult to Occupational Therapy [OT Evaluation and Treatment] [CONS] Routine - Patient Instructions Diet: Diabetic Diet Driving: Do Not Drive Showering/Bathing: May Shower Wound/Incision Care: Change Dressing Daily (to drain site until Friday 04/20) Notify Provider of: Fever, Increased Pain, Nausea and/or Vomiting - Discharge Plan *PRESCRIPTION DRUG MONITORING PROGRAM REVIEWED*: Not Applicable *COPY OF PRESCRIPTION DRUG MONITORING REPORT IN PATIENT ANDERS: Not Applicable Home Medications: Home Meds Acetaminophen 1,000 mg PO Q6H PRN 03/18/21 [History] Benzocaine/Menthol [[facility] Sore Throat 15-3.6 mg Arturo] 1 each MM Q4HR PRN 04/03/21 [History] Melatonin 3 mg PO BEDTIME PRN 04/03/21 [History] Metoprolol Succinate [Toprol Xl] 25 mg PO DAILY 04/03/21 [History] Patient's Own Medication [Ptom] 1 tab PO DAILY 04/03/21 [History] cephALEXin [Cephalexin] 2,000 mg PO ASDIRECTED PRN 04/03/21 [History] Amoxicillin/Clavulanate K [Augmentin 875-125 MG] 1 tab PO Q8H tablet 04/17/21 [Rx] Apixaban [Eliquis] 5 mg PO BID tablet 04/17/21 [Rx] Docusate Sodium/Sennosides [Senna Plus] 1 tab PO BID PRN tablet 04/17/21 [Rx] polyethylene glycoL 3350 [MiraLAX] 17 gm PO DAILY PRN packet 04/17/21 [Rx] Oxygen Therapy Mode: Room Air Referrals: Sweta Daniel, [employer]ICE DRIVER [Nurse Practitioner] - 04/24/21 1:00 pm (Follow-up with Sweta Daniel APRN [employer] on 04/24/21 at 1:00 at [facility]. Follow-up with [facility] Team on FriMay 02 at 11:45. Nothing to eat or drink after 7:30 that morning for repeat abdominal CT ) - Discharge Summary/Plan Comment DC Time >30 min.: Yes Total # of Minutes for Discharge Time: 40 - General Info Date of Service: 04/17/21 Functional Status: Reports: Pain Controlled, Tolerating Diet, Ambulating, Urinating, Incentive Spirometry (2000ml). Denies: New Symptoms - Review of Systems General: Reports: No Symptoms HEENT: Reports: No Symptoms Pulmonary: Reports: No Symptoms Cardiovascular: Reports: Edema (mild to lower legs) Gastrointestinal: Reports: No Symptoms Genitourinary: Reports: No Symptoms Musculoskeletal: Reports: No Symptoms Skin: Reports: No Symptoms Neurological: Reports: No Symptoms Psychiatric: Reports: No Symptoms - Patient Data Vitals - Most Recent: Last Vital Signs Temp 97.1 F 04/17/21 09:23 Pulse 94 04/17/21 09:31 Resp 16 04/17/21 09:23 BP 120/85 04/17/21 09:31 Pulse Ox 98 04/17/21 09:23 Weight - Most Recent: 230 lb 1.6 oz I&O - Last 24 hours: Intake & Output 04/16/21 04/17/21 04/17/21 22:59 06:59 14:59 Intake Total 440 210 Output Total 920 Balance 440 -710 Med Orders - Current: Current Medications Acetaminophen (Acetaminophen 500 Mg Tab) 1,000 mg PO Q6H PRN PRN Reason: Pain Last Admin: 04/10/21 09:06 Dose: 1,000 mg Documented by: Apixaban (Apixaban 5 Mg Tab) 5 mg PO BID [facility] Last Admin: 04/17/21 09:31 Dose: 5 mg Documented by: Sodium Chloride (Normal Saline) 100 mls @ 250 mls/hr IV ASDIRECTED [facility] Last Admin: 04/17/21 00:29 Dose: 250 mls/hr Documented by: Piperacillin Sod/Tazobactam (Sod 4.5 gm/ Sodium Chloride) 100 mls @ 200 mls/hr IV Q8H [facility] Last Admin: 04/17/21 09:32 Dose: 200 mls/hr Documented by: Sodium Chloride (Normal Saline) 50 mls @ 200 mls/hr IV ASDIRECTED [facility] Last Admin: 04/16/21 10:45 Dose: 200 mls/hr Documented by: Melatonin (Melatonin 3 Mg Tab) 3 mg PO BEDTIME PRN PRN Reason: Insomnia Metoprolol Succinate (Metoprolol Succinate 25 Mg Tab.Er) 25 mg PO DAILY [facility] Last Admin: 04/17/21 09:31 Dose: 25 mg Documented by: Ondansetron HCl (Ondansetron 4 Mg Tab.Dis) 4 mg PO Q4HR PRN PRN Reason: Nausea Polyethylene Glycol (Polyethylene Glycol 3350 Powder 17 Gm Packet) 17 gm PO DAILY PRN PRN Reason: Constipation Senna/Docusate Sodium (Docusate Sodium/Sennosides 50-8.6 Mg Tab) 1 tab PO BID PRN PRN Reason: Constipation Sodium Chloride (Sodium Chloride 0.9% 10 Ml Syringe) 10 ml FLUSH ASDIRECTED PRN PRN Reason: IV Use Last Admin: 04/15/21 16:43 Dose: 10 ml Documented by: Discontinued Medications Apixaban (Apixaban 5 Mg Tab) 10 mg PO BID [facility] Stop: 04/07/21 21:01 Last Admin: 04/07/21 20:06 Dose: 10 mg Documented by: Piperacillin/Tazobactam/ (Dextrose 3.375 gm/ Premix) 50 mls @ 100 mls/hr IV Q6H [facility] Stop: 04/13/21 20:01 Piperacillin Sod/Tazobactam (Sod 4.5 gm/ Sodium Chloride) 100 mls @ 200 mls/hr IV Q8HR [facility] Stop: 04/13/21 22:01 Last Admin: 04/06/21 17:50 Dose: Not Given Documented by: Iopamidol (Iopamidol 755 Mg/Ml 75 Ml Bottle) 75 ml IVPUSH ONETIME ONE Stop: 04/16/21 10:07 Last Admin: 04/16/21 19:32 Dose: Not Given Documented by: Iopamidol (Iopamidol 755 Mg/Ml 75 Ml Bottle) 75 ml IVPUSH ONETIME ONE Stop: 04/16/21 10:46 Last Admin: 04/16/21 10:45 Dose: 75 ml Documented by: Piperacillin Sod/Tazobactam Sod (Piperacillin/Tazobactam 4.5 Gm Vial) 4.5 gm IV Q8HR [facility] Sodium Chloride (Sodium Chloride 1 Gm Tab) 1 gm PO TID [facility] Last Admin: 04/14/21 09:24 Dose: Not Given Documented by: Sodium Chloride (Sodium Chloride 1 Gm Tab) 1 gm PO BID JENN - Exam Quality Assessment: Reports: Central Line/PICC (planning to DC today prior to discharge home), DVT Prophylaxis. Denies: Supplemental Oxygen, Urine Catheter, Skin Breakdown General: Reports: Alert, Oriented, Cooperative, No Acute Distress HEENT: Reports: Pupils Equal, Pupils Reactive, Mucous Membr. Moist/[place] Neck: Reports: Supple, Trachea Midline Lungs: Reports: Clear to Auscultation, Normal Respiratory Effort. Denies: Crackles, Rales, Rhonchi, Wheezing Cardiovascular: Reports: Regular Rhythm, No Murmurs, Tachycardia (mild, chronic per patient) GI/Abdominal Exam: Normal Bowel Sounds, Soft, Non-Tender, No Distention (Male) Exam: Deferred Rectal (Males) Exam: Deferred Back Exam: Reports: Normal Inspection, Full Range of Motion Extremities: Normal Inspection, Normal Range of Motion, Non-Tender, Normal Capillary Refill, Pedal Edema (+1 LLE, Non-pitting RLE) Skin: Reports: Warm, Dry, Intact Wound/Incisions: Reports: Healing Well (Midline abdominal incision dry, healing well. No concerns following staple removal), Other Neurological: Reports: No New Focal Deficit Psy/Mental Status: Reports: Alert, Normal Affect, Normal Mood
[2021-04-17] MEDS ORDERED: Amoxicillin/Clavulanate K 875-125 MG Tab PO SCH (16:00)
[2021-04-17] MEDS ORDERED: Apixaban 5 MG Tab PO ONE (16:27)
--- NOTE | 2021-04-17 17:57 | PCM.SN.2 ---
- Free Text/Narrative Note: Patient discharged home with one dose of eliquis 5mg PO to be taken tonight. Change to xarleto per [facility] as eliquis is not on formulary per patient's insurance. Patient to continue metoprolol succinate 25mg PO daily which was started in [place] during acute hospitalization. Time Documentation
== END 2021-04-17 17:20 | disposition home or self-care (01) | DRG 371 ==
LOC: KA.MS 03:53 → UNDOADMIN 03:53 → KA.MS 15:29 → UNDOADMIN 15:29 → KA.MS 15:53
PROVIDERS: ADMIT Nurse Practitioner Family; ATTEND Nurse Practitioner Family
DX: K65.1 Peritoneal abscess (principal); I81 Portal vein thrombosis; K55.059 Acute (reversible) ischemia of intestine, part and extent unspecified; I42.8 Other cardiomyopathies; E87.1 Hypo-osmolality and hyponatremia; I50.22 Chronic systolic (congestive) heart failure; R53.1 Weakness; E78.2 Mixed hyperlipidemia; E55.9 Vitamin D deficiency, unspecified; R73.03 Prediabetes; E66.9 Obesity, unspecified; D69.6 Thrombocytopenia, unspecified; H91.93 Unspecified hearing loss, bilateral; E78.00 Pure hypercholesterolemia, unspecified; I11.0 Hypertensive heart disease with heart failure; Z96.659 Presence of unspecified artificial knee joint; Z79.899 Other long term (current) drug therapy; Z90.49 Acquired absence of other specified parts of digestive tract
CPT/HCPCS: 36415; 74177; 80048; 80053; 80061; 85025; 97110-GP; 97161-GP; A9270-GY; J2543; Q9967

== ENCOUNTER 2021-10-17 09:54 | Day surgery (SDC) | payer MEDICARE, OTHER ==
[2021-10-17] MEDS ORDERED: Sodium Chloride 0.9% 10 ML Syringe FLUSH PRN (10:00)
[2021-10-17] MEDS ORDERED: Lactated Ringers 1,000 ML IV SCH (10:00)
[2021-10-17] MEDS ORDERED: Propofol 200 MG/20 ML SDV ONE (11:00)
[2021-10-17] MEDS ORDERED: Midazolam 1 MG/ML 2 ML SDV ONE (11:00)
== END 2021-10-17 13:13 | disposition home or self-care (01) ==
LOC: KA.SDS 09:54
PROVIDERS: ATTEND Family Medicine
DX: Z12.11 Encounter for screening for malignant neoplasm of colon (principal); D12.4 Benign neoplasm of descending colon; K57.30 Diverticulosis of large intestine without perforation or abscess without bleeding; I50.20 Unspecified systolic (congestive) heart failure; E78.2 Mixed hyperlipidemia; R73.03 Prediabetes; E66.9 Obesity, unspecified; Z79.899 Other long term (current) drug therapy; Z88.8 Allergy status to other drugs, medicaments and biological substances; Z98.890 Other specified postprocedural states; Z68.36 Body mass index [BMI] 36.0-36.9, adult
CPT/HCPCS: J2250; J2704; J7120